=== PATIENT | female | born 1960 | race Caucasian/White ===

== ENCOUNTER → 2023-08-22 09:57 | Outpatient (REF) | payer OTHER, SELFPAY | LOC: RCS 09:57 | PROVIDERS: ATTENDING PHYSICIAN Internal Medicine Cardiovascular Disease; FAMILY PHYSICIAN Internal Medicine | DX: R07.89 Other chest pain (principal); R06.09 Other forms of dyspnea | CPT/HCPCS: 93017 ==

== ENCOUNTER → 2023-09-14 14:19 | Outpatient (REF) | payer OTHER, SELFPAY | LOC: RCS 14:19 | PROVIDERS: ATTENDING PHYSICIAN Internal Medicine Cardiovascular Disease; FAMILY PHYSICIAN Internal Medicine | DX: R94.39 Abnormal result of other cardiovascular function study (principal); R07.89 Other chest pain; R06.09 Other forms of dyspnea | CPT/HCPCS: 93017; 93350 ==

== ENCOUNTER 2025-02-10 11:57 | Emergency (ER) | payer OTHER, SELFPAY ==
[2025-02-10 12:07] VITALS: BP 173/94
--- NOTE | 2025-02-10 14:27 | ED.MUSCINJ ---
HPI-Injury
General
Chief Complaint: Musculo-Skeletal Complaint
Source: patient
Exam Limitations: none
Time Seen by Provider: 02/10/25 14:11
Nursing documentation reviewed up to this point in time: agreed with
History of Present Illness-Injury
Is this injury a work related problem?: No
Is pt an associate of [facility]/[place]?: No
Initial Injury comments:
Patient to the emergency department with complaint of right posterior knee pain. She states that her knee has been painful for over a week now. She denies any history of trauma. Today she states she was just walking and felt a crunch and
increasing pain to right posterior knee. She states now she has difficulty putting any weight on her leg. To emergency department accompanied by spouse for evaluation.
Past History
Past History
ED Past Medical History: HTN
Social History
Tobacco: Non-smoker
Personal:
Living: with family
Review of Systems
Review of Systems
Allergies reviewed?: Yes
All Other Systems: ROS reviewed and negative except as documented in HPI and ROS
Constitutional: Reports no symptoms
Musculoskeletal: Reports joint pain (Pain to right posterior knee)
Skin: Reports no symptoms
Neurological: Reports no symptoms
Psychiatric: Reports no symptoms
Musculoskeletal Injury Exam
Musculoskeletal Injury Exam
Right Posterior Knee:
Pain with Movement?: Moderate
Tender to palpation?: Moderate
Soft tissue swelling?: Mild
External deformity and angulation?: None
Joint effusion?: None
Contusion?: None
Hematoma-local bleeding into tissue?: None
Crepitus with movement?: No
Joint instability?: No
Malalignment/deformity?: No
Range of motion: Limited
Distal skin color and temperature: normal-warm & good color
Capillary Refill: normal
Normal distal neurovascular exam?: Yes
Peripheral Pulses: posterior tibial (right): 3+ and dorsalis pedis (right): 3+
Phy Exam
General Physical Exam
General Presentation: well appearing and mild distress
General age: appears stated age
General Skin: warm and dry
General Habitus: normal
General Mental: alert
Musculoskeletal Exam
Musculoskeletal Exam: neuro vasc intact
Skin Exam
Skin Exam: normal color, warm/dry and no rash
Psychiatric Exam
Psychiatric Exam: normal mood/affect
Injury Course
Orders/Labs/Results
Orders:
Orders
02/10/25 14:27
Knee, Right 4 or More Views [CR Knee- Right 4 Or More View*] Urgent
Comment:
Reason For Exam: posterior knee pain
02/10/25 15:03
Ibuprofen [Motrin] 600 mg PO NOW STA
02/10/25 15:40
Crutches-Treatment ONCE
Knee Immobilizer Right-Treatme ONCE
*Radiology
Radiology exam reviewed: radiology read reviewed
*Pulse Oximetry
SaO2: 98
Oxygen Mode of Delivery: Room air
Patient hypoxic: no
*Critical Care Note
Total Time (30-74mins, 75-104mins- exclusive of procedures): Not Applicable
Update Note
Update Note:
Patient to emergency department for evaluation of right knee pain. She states she first noted pain to her knee approximately 1 week ago. Today she was walking and felt a crunching sensation to the joint followed by increasing pain. Now having
difficulty ambulating due to the pain. Right lower extremity is neurovascularly intact. Mild knee swelling noted. No erythema, no bruising. X-ray is negative for fracture or dislocation. Mild suprapatellar joint effusion is noted. Will place
in a knee immobilizer splint. She may use crutches as needed for balance. She is advised to continue to ice as needed, take ibuprofen as needed and follow-up with orthopedics. She was given the number for orthopedic follow-up. Will discharge
home.
ED Attending Note
-
Portions of this chart may have been created with voice recognition software.� Occasional wrong word or��sound alike� substitutions may have occurred due to the inherent limitations of voice recognition software.
Discharge Plan
Departure
Patient Disposition: Home (Routine Discharge)
Date of Disposition: 02/10/25
Time of Disposition: 15:40
Patient with high blood pressure during this ER visit?: No
Condition: Good
Covid-19: Not Applicable
Discharge Problem:
Knee pain
Instructions: How to Use Crutches, Knee Immobilizer (DC), Ibuprofen, Knee Pain (DC), Using Cold for Pain
Prescriptions:
No Action
docosahexaenoic acid-epa 1 CAP capsule
1 cap PO DAILY
Floridex
5 oz PO DAILY
MSM
1 tab PO DAILY
Rowliver
1 tab PO DAILY
Sperlia
1 tab PO DAILY
VITAMIN E
1 tab PO DAILY
Vitamin B 12
1 tab PO DAILY
Referrals:
UNKNOWN - PT DOES,NOT KNOW [Unknown Provider]
Noe Pisano MD [Active, Orthopedics] - Call in 1-3 days for appt
Interventions
Interventions:
*General Assessment Last Done: 02/10/25 12:07
*Neglect/Abuse Screening Last Done: 02/10/25 12:07
*Risk Screen - Suicide (C-SSRS) Last Done: 02/10/25 12:07
Discharge Date and Time
Print Language: GEORGIAN
[2025-02-10] MEDS: MOTRIN 600 MG PO (15:20)
--- NOTE | 2025-02-10 16:06 | EDRN ---
Patient refused crutches
== END 2025-02-10 16:07 | disposition home or self-care (01) ==
LOC: EMR 11:57
PROVIDERS: EMERGENCY PHYSICIAN Emergency Medicine; FAMILY PHYSICIAN Internal Medicine
DX: M25.561 Pain in right knee (principal); I10 Essential (primary) hypertension
CPT/HCPCS: 99283; 29505; 73564